=== PATIENT | female | born 1990 | race Two or more races ===

== ENCOUNTER 2016-10-20 12:35 | Emergency (ER) | payer OTHER ==
[~2016-10-20] VITALS: Ht 157.5 cm; Wt 55.8 kg
[~2016-10-20 12:35] MED LIST: ALBU18 IN; DEXTSYP31 PO; LEVO500T3 PO; NOR5T PO
[2016-10-20 13:08] VITALS: BP 128/78
== END 2016-10-20 17:47 | disposition home or self-care (01) ==
LOC: ER 12:37
DX: H00.011 Hordeolum externum right upper eyelid (principal)

== ENCOUNTER 2016-10-26 20:36 | Emergency (ER) | payer OTHER ==
[~2016-10-26] VITALS: Ht 157.5 cm; Wt 56.7 kg
[2016-10-26 21:30] LABS: Basophils # (auto) 0 uL; Basophils % (auto) 0.5 % (0.0-2.0); Eosinophils # (auto) 0 uL; Eosinophils % (auto) 0.2 % (0.0-7.0); Hematocrit 42.5 % (36.0-46.0); Hemoglobin 14.5 g/dL (12.2-16.2); Lymphocytes # (auto) 0.7 uL; Mean Corpuscular Hemoglobin 31.4 pg (28.0-32.0); Mean Corpuscular Hgb Conc. 34.1 g/dL (32.0-36.0); Mean Platelet Volume 7.7 fL (7.4-10.4); Monocytes # (auto) 0.4 uL; Monocytes % (auto) 4.6 % (0.0-12.0); Neutrophils # (auto) 7.6 uL; Neutrophils % (auto) 86.7 % (37.0-80.0); Platelet Count (auto) 320 10^3/uL (140-450); Red Cell Distribution Width 13.2 % (11.6-16.0); White Blood Cell 8.8 10^3/uL (4.4-10.8)
[2016-10-26 21:47] LABS: INR 0.99 (0.9-1.15); Partial Thromboplastin Time 26.6 sec (22.64-33.71); Prothrombin Time 10.7 sec (9.37-12.3)
[2016-10-26 21:49] LABS: Albumin 3.8 g/dL (3.4-5.0); BUN/Creatinine Ratio 7.9; Bilirubin, Total 0.8 mg/dL (0.2-1.0); Potassium 3.4 mmol/L (3.5-5.1); Total Protein 7.9 g/dL (6.4-8.2)
[2016-10-26 22:26] LABS: Urine Bilirubin Negative (Negative); Urine Blood Negative /uL (Negative); Urine Color Yellow (Yellow); Urine Glucose Normal (Normal); Urine Ketone Negative (Negative); Urine Nitrite Negative (Negative); Urine RBC 2 /hpf (0 - 4); Urine Squamous Epithelial Cell FEW /hpf (<5); Urine Urobilinogen Normal (Negative); Urine pH 7.5 (5.0-8.0)
[2016-10-27 03:52] VITALS: BP 110/56
== END 2016-10-27 03:55 | disposition home or self-care (01) ==
LOC: ER 20:42
DX: K52.9 Noninfective gastroenteritis and colitis, unspecified (principal)
CPT/HCPCS: 36415; 80053; 81001; 81025; 82150; 83690; 85025; 85610; 85730

== ENCOUNTER 2017-11-21 12:50 | Emergency (ER) | payer MEDICAID, OTHER ==
[~2017-11-21] VITALS: Ht 154.9 cm; Wt 55.8 kg
[~2017-11-21 12:50] MED LIST changes: +HYDR-4683 PO; +LEVO500T21 PO; -LEVO500T3 PO; -NOR5T PO
[2017-11-21 13:09] VITALS: BP 115/79
== END 2017-11-21 15:02 | disposition home or self-care (01) ==
LOC: ER 12:50
DX: N39.0 Urinary tract infection, site not specified (principal); Z79.899 Other long term (current) drug therapy; Z87.440 Personal history of urinary (tract) infections

== ENCOUNTER 2019-08-29 12:30 | Emergency (ER) | payer OTHER, MEDICAID ==
[~2019-08-29] VITALS: Ht 157.5 cm; Wt 54.4 kg
[~2019-08-29 12:30] MED LIST changes: -HYDR-4683 PO; +HYDR-4833 PO
[2019-08-29 13:51] LABS: Urine Bacteria FEW /hpf (None Seen); Urine Blood Negative /uL (Negative); Urine Specific Gravity 1.013 (1.001-1.035); Urine WBC 6 /hpf (0 - 5)
[2019-08-29 16:30] VITALS: BP 98/74
== END 2019-08-29 19:10 | disposition home or self-care (01) ==
LOC: ER 12:30
DX: N83.291 Other ovarian cyst, right side (principal); N94.10 Unspecified dyspareunia; N39.0 Urinary tract infection, site not specified
CPT/HCPCS: 76856; 81001; 81025

== ENCOUNTER 2020-08-31 16:38 | Emergency (ER) | payer BC, MEDICAID ==
[~2020-08-31] VITALS: Ht 154.9 cm; Wt 56.7 kg
[~2020-08-31 16:38] MED LIST changes: -LEVO500T21 PO; +LEVO500T31 PO
[2020-08-31 18:18] VITALS: BP 134/91
== END 2020-08-31 18:28 | disposition home or self-care (01) ==
LOC: ER 16:38
DX: R51.9 Headache, unspecified (principal); R42 Dizziness and giddiness; F41.9 Anxiety disorder, unspecified
CPT/HCPCS: 70450; 81002; 81025

== ENCOUNTER 2023-04-24 21:16 | Emergency (ER) | payer OTHER, MEDICAID ==
[~2023-04-24] VITALS: Ht 157.5 cm; Wt 57.9 kg
[2023-04-24 21:38] LABS: Basophils # (auto) 0.1 10 ^3/uL (0-0.2); Basophils % (auto) 0.7 % (0.0-2.0); Eosinophils # (auto) 0.1 10 ^3/uL (0-0.8); Eosinophils % (auto) 0.6 % (0.0-7.0); Hematocrit 38.2 % (36.0-46.0); Hemoglobin 12.9 g/dL (12.2-16.2); Lymphocytes # (auto) 2.4 10 ^3/uL (0.4-5.4); Lymphocytes % (auto) 24.8 % (10.0-50.0); Mean Corpuscular Hemoglobin 31.2 pg (28.0-32.0); Mean Corpuscular Hgb Conc. 33.9 g/dL (32.0-36.0); Mean Corpuscular Volume 92.2 fL (80.0-100.0); Monocytes % (auto) 10.3 % (0.0-12.0); Neutrophils # (auto) 6.3 10 ^3/uL (1.6-8.6); Neutrophils % (auto) 63.6 % (37.0-80.0); Red Blood Cells 4.14 10^6/uL (4.0-5.20); Red Cell Distribution Width 12.9 % (11.8-14.3); White Blood Cell 9.9 10^3/uL (4.4-10.8)
[2023-04-24] MEDS ORDERED: ACETAMINOPHEN 500 MG TAB PO ONE (21:45)
[2023-04-24 21:54] LABS: Albumin 4.5 g/dL (3.2-4.8); Alkaline Phosphatase 94 U/L (46-116); Anion Gap 7 (5-15); Aspartate Aminotransferase < 8 U/L (13-40); Bilirubin, Total 0.5 mg/dL (0.2-1.0); Calcium 9.4 mg/dL (8.7-10.4); Carbon Dioxide 24 mmol/L (20-30); Chloride 104 mmol/L (98-107); Glucose 95 mg/dL (74-106); Magnesium 1.7 mg/dL (1.6-2.6); Potassium 3.2 mmol/L (3.5-5.1); Sodium 135 mmol/L (136-145); Total Protein 7.4 g/dL (5.7-8.2)
[2023-04-24 21:54] LABS: Urine Bacteria FEW /hpf (None Seen); Urine Blood Negative /uL (Negative); Urine Clarity Clear (Clear); Urine Color Colorless (Yellow); Urine Protein, UAD Negative (Negative); Urine Specific Gravity 1.005 (1.001-1.035); Urine WBC 11 /hpf (0 - 5); Urine pH 6.5 (5.0-8.0)
[2023-04-24 22:03] LABS: Alanine Aminotransferase < 9 U/L (7-40); BUN/Creatinine Ratio 7.6 (10.0-20.0); Blood Urea Nitrogen < 5 mg/dL (9-23)
[2023-04-24 22:26] LABS: INR 1.03 (0.9-1.15); Partial Thromboplastin Time 27.3 SEC (24.5-34.5); Prothrombin Time 10.8 sec (9.3-11.8)
[2023-04-25] MEDS ORDERED: AMOXICILLIN TRIHYDRATE 250 MG CAP PO ONE (00:30)
[2023-04-25] MEDS ORDERED: AMOX600S PO (00:38)
[2023-04-25 00:57] VITALS: BP 116/68; PULSE 88; RESP 15; TEMP 98
[2023-04-25 01:02] VITALS: O2SAT 99
== END 2023-04-25 01:25 | disposition home or self-care (01) ==
LOC: ER 21:18
DX: O26.891 Other specified pregnancy related conditions, first trimester (principal); R10.2 Pelvic and perineal pain; K21.9 Gastro-esophageal reflux disease without esophagitis; F41.9 Anxiety disorder, unspecified; Z3A.01 Less than 8 weeks gestation of pregnancy; Z79.1 Long term (current) use of non-steroidal anti-inflammatories (NSAID); Z79.899 Other long term (current) drug therapy
CPT/HCPCS: 36415; 80053; 81001; 83735; 84484; 84702; 85025; 85610; 85730; 93005